=== PATIENT | male | born 1990 | race African-American/Black ===

== ENCOUNTER 2018-05-04 08:39 | Emergency (ER) | payer SELFPAY | END 2018-05-04 09:44 | disposition home or self-care (01) | LOC: MADERS 08:39 | DX: J02.0 Streptococcal pharyngitis (principal); F17.200 Nicotine dependence, unspecified, uncomplicated | CPT/HCPCS: 99282 ==

== ENCOUNTER 2018-08-15 08:33 | Emergency (ER) | payer SELFPAY | END 2018-08-15 09:00 | disposition home or self-care (01) | LOC: MADERS 08:33 | DX: T78.40XA Allergy, unspecified, initial encounter (principal); F17.210 Nicotine dependence, cigarettes, uncomplicated | CPT/HCPCS: 99282 ==

== ENCOUNTER 2019-04-25 11:42 | Outpatient (CLI) | payer OTHER, SELFPAY ==
[2019-04-25 12:27] LABS: Amphetamine Not Detected (NotDetected); Barbiturates Screen Not Detected (NotDetected); Benzodiazepine Screen Not Detected (NotDetected); Cocaine Metabolite Screen Not Detected (NotDetected); Medtox Control Line Valid? VALID (VALID); Methadone Not Detected (NotDetected); Methamphetamine Not Detected (NotDetected); Opiate Screen Not Detected (NotDetected); Oxycodone Screen Not Detected (NotDetected); Phencyclidine (PCP) Not Detected (NotDetected); THC/Cannabinoid Screen Not Detected (NotDetected); Tricyclic Screen Not Detected (NotDetected)
== END 2019-04-25 11:43 | disposition home or self-care (01) ==
LOC: MADLABBHPM 11:42
PROVIDERS: ATTEND Family Medicine
DX: G47.19 Other hypersomnia (principal)
CPT/HCPCS: 80306

== ENCOUNTER 2020-06-23 21:15 | Emergency (ER) | payer OTHER | END 2020-06-23 21:30 | disposition left against medical advice (07) | LOC: MADERS 21:15 | DX: Z53.21 Procedure and treatment not carried out due to patient leaving prior to being seen by health care provider (principal) ==

== ENCOUNTER 2022-10-14 23:21 | Emergency (ER) | payer OTHER, SELFPAY ==
[2022-10-15 00:10] LABS: Bilirubin Negative (Negative); Blood, Urine Negative (Negative); Glucose, Urine (Dipstick) Negative (Negative); Ketone, Urine Negative (Negative); Leukocyte Negative (Negative); Nitrite Negative (Negative); Protein, Urine (Dipstick) Negative (Neg-Trace); Urobilinogen 0.2 mg/dL (Less than 2); pH, Urine 6.5 (5.0-9.0)
[2022-10-15 00:18] LABS: Bacteria/HPF Rare-Few HPF (None Seen); CAUTI Indications for Culture Dysuria,urgency,freq; Clarity Hazy (Clear); RBC/HPF 0-3 HPF (0-3); Specific Gravity, Urine 1.025 (1.002-1.036); Squamous Epithelial 0-3 HPF (0-3); WBC/HPF 0-3 HPF (0-3)
[2022-10-15 00:19] LABS: Urine Culture Reflex No No
[2022-10-15] MEDS ORDERED: cefTRIAXone (ROCEPHIN) 1 GM VIAL ONE (00:33)
[2022-10-15] MEDS ORDERED: Sterile Water 10 ML ONE (00:33)
[2022-10-15] MEDS ORDERED: Azithromycin 250 MG TAB ONE (00:47)
[2022-10-16 15:24] LABS: Chlam.trachomatis by PCR,Urine Not Detected (NotDetected); GC N.gonorrhoeae PCR,UrineVOID Not Detected (NotDetected)
== END 2022-10-15 00:57 | disposition home or self-care (01) ==
LOC: MADERS 23:21
DX: R30.0 Dysuria (principal); F17.210 Nicotine dependence, cigarettes, uncomplicated
CPT/HCPCS: 81001; 87491; 87591; 96372; 99283; J0696

== ENCOUNTER 2022-10-27 01:09 | Emergency (ER) | payer SELFPAY | END 2022-10-27 01:53 | disposition home or self-care (01) | LOC: MADERS 01:09 | DX: B35.6 Tinea cruris (principal); F17.210 Nicotine dependence, cigarettes, uncomplicated | CPT/HCPCS: 99283 ==

== ENCOUNTER 2023-03-05 12:44 | Emergency (ER) | payer SELFPAY ==
[2023-03-05] MEDS ORDERED: Boostrix 0.5 ML (Tdap) VIAL (>/=7 yrs of age) ONE (13:23)
== END 2023-03-05 13:23 | disposition home or self-care (01) ==
LOC: MADERS 12:44
DX: S61.210A Laceration without foreign body of right index finger without damage to nail, initial encounter (principal); F17.210 Nicotine dependence, cigarettes, uncomplicated; F17.290 Nicotine dependence, other tobacco product, uncomplicated; W26.8XXA Contact with other sharp object(s), not elsewhere classified, initial encounter
CPT/HCPCS: 12001; 90715; 99283

== ENCOUNTER 2023-08-08 20:06 | Emergency (ER) | payer SELFPAY ==
[2023-08-08 21:50] LABS: Bilirubin Negative (Negative); Blood, Urine Negative (Negative); CAUTI Indications for Culture Dysuria,urgency,freq; Clarity Clear (Clear); Glucose, Urine (Dipstick) Negative (Negative); Ketone, Urine Negative (Negative); Leukocyte Negative (Negative); Mucous/LPF 1+ LPF (<2+); Nitrite Negative (Negative); Protein, Urine (Dipstick) Negative (Neg-Trace); RBC/HPF 0-3 HPF (0-3); Specific Gravity, Urine 1.025 (1.002-1.036); Squamous Epithelial 0-3 HPF (0-3); WBC/HPF None Seen HPF (0-3)
[2023-08-08 21:52] LABS: Urine Culture Reflex No No
[2023-08-09 11:22] LABS: Syphilis Antibody Nonreactive (Nonreactive); Syphilis Antibody Index 0.04 S/CO (<1.00 Non-Reactive)
== END 2023-08-08 22:07 | disposition home or self-care (01) ==
LOC: MADERS 20:06
DX: N48.29 Other inflammatory disorders of penis (principal); F17.210 Nicotine dependence, cigarettes, uncomplicated
CPT/HCPCS: 81001; 86780; 99283